=== PATIENT | female | born 1960 | race African-American/Black ===

== ENCOUNTER 2019-04-15 12:23 | Emergency (ER) | payer BC, OTHER ==
[~2019-04-15] VITALS: Ht 152.4 cm; Wt 107.0 kg
[2019-04-15] MEDS ORDERED: ACETAMINOPHEN 500MG TABLET PO ONE (13:15)
[2019-04-15] MEDS ORDERED: IBUPROFEN 800MG TABLET PO ONE (13:15)
[2019-04-15] MEDS ORDERED: TRAMADOL 50MG TABLET PO ONE (15:15)
[2019-04-15 15:24] VITALS: BP 197/99
== END 2019-04-15 16:02 | disposition home or self-care (01) ==
LOC: ER 12:23
DX: S83.91XA Sprain of unspecified site of right knee, initial encounter (principal); S76.219A Strain of adductor muscle, fascia and tendon of unspecified thigh, initial encounter; S80.11XA Contusion of right lower leg, initial encounter; W18.30XA Fall on same level, unspecified, initial encounter; Y93.89 Activity, other specified; Y92.89 Other specified places as the place of occurrence of the external cause; Y99.8 Other external cause status
CPT/HCPCS: 73502; 73560; 73590; 99284